=== PATIENT | male | born 1960 | race Caucasian/White ===

== ENCOUNTER 2019-02-18 19:40 | Emergency (ER) | payer BC ==
[~2019-02-18] VITALS: Ht 182.9 cm; Wt 128.8 kg
[2019-02-18 19:45] VITALS: BP_SYST 167
--- NOTE | 2019-02-18 19:45 | NUR ---
Patient triaged and placed in waiting room. VSS and patient appears in no acute distress at this time. Accompanied by BHARAT JAMIL, awaiting available bed, and MD notified of need for MSE.
[2019-02-18] MEDS ORDERED: LEVOFLOXACIN 500 MG TABLET PO ONE (22:15)
--- NOTE | 2019-02-18 23:36 | NUR ---
Patient to ER bed 6 to gown for evaluation. Side rails up. Report given to BHARAT JAMIL.
--- NOTE | 2019-02-19 00:05 | NUR ---
58 y/o male presents to the ED w/ c/o of testicular pain that started yesterday. Pt states discomfort in his testicles and has noted some swelling. Pt reports a pain of 6/10. Pt has Hx of DM, and HTN. Pt also had Hx of a pancreatic tumor removal. no other Hx noted. Will continue to monitor.
--- NOTE | 2019-02-19 00:45 | NUR ---
ER at bedside examining patient.
[2019-02-19] MEDS ORDERED: LEVOFLOXACIN 500 MG TABLET ONE (00:57)
[2019-02-19] MEDS ORDERED: KETOROLAC TROMETHAMINE 30 MG VIAL IM ONE (01:15)
[2019-02-19 01:27] VITALS: BP_SYST 124
--- NOTE | 2019-02-19 01:27 | NUR ---
Patient given written and verbal discharge instructions and verbalizes understanding. ER MD discussed with patient the results and treatment provided. Patient in stable condition. ID arm band removed. IV catheter removed intact and dressing applied, no active bleeding. Rx of [place] and Levaquin given. Patient educated on pain management and to follow up with PMD. Pain Scale 0/10. Opportunity for questions provided and answered. Medication side effect fact sheet provided.
[2019-02-19] MEDS ORDERED: KETOROLAC TROMETHAMINE 30 MG VIAL ONE (01:31)
== END 2019-02-19 01:27 | disposition home or self-care (01) ==
LOC: SED 19:40
DX: N45.1 Epididymitis (principal); N43.3 Hydrocele, unspecified
CPT/HCPCS: 76870; 96372; 99284; J1885